=== PATIENT | male | born 1940 | race Caucasian/White ===

== ENCOUNTER 2017-03-02 10:18 | Emergency (ER) | payer OTHER ==
--- NOTE | 2017-03-02 10:29 | EDPHY ---
H & P Time Seen by Provider: 03/02/17 10:28 HPI/ROS: Chief complaint. hip and low back pain HPI. 68-year-old male presents emergency department with left low back and left hip pain for 3 days. He has had a right hip replacement done in 2004. 1 month ago he developed some bursitis in the right hip and after cortisone injection and physical therapy the right hip is better. He last had physical therapy 4 days ago. 3 days ago pain began in his left hip. As he has altered his gait and finding that bending over to walk seems to improve the pain in his left hip he has developed now 2 days of left lower back pain. He has used Tylenol with inadequate relief. He is having a difficult time walking. However there has been no injury or fall. He is comfortable at rest but it hurts to walk. He does have a physical therapy appointment again tomorrow. No knee or ankle discomfort. No bowel or bladder symptoms. No significant history of left hip pain. ROS Constitutional. no fever/chills, no weakness Eyes. no problems with vision ENT. no sore throat, no nasal drainage Cardiovascular. no chest pain Respiratory. no shortness of breath, no cough Abdominal. no abdominal pain, no nausea/vomiting, no diarrhea . no problems urinating MS. low back and left hip pain Skin. no rash Lymph. no swollen glands Neuro. Difficulty walking secondary to left hip pain Past Medical/Surgical History: Past medical history is significant for BPH paroxysmal atrial fibrillation, dyslipidemia. Patient is on Xarelto Social History: , nonsmoker, no alcohol Smoking Status: Never smoked Physical Exam: General Appearance: Alert well-developed male mild distress vital signs stable Eyes: Pupils equal and round no pallor or injection. ENT, Mouth: Mucous membranes are moist. Respiratory: There are no retractions, lungs are clear to auscultation. Cardiovascular: Regular rate and rhythm. Gastrointestinal: Abdomen is soft and nontender, no masses, bowel sounds normal. Neurological: Awake and alert, sensory and motor exams grossly normal. Skin: Warm and dry, no rashes. Musculoskeletal: Neck is supple nontender. Tenderness to the left lumbar area but not over the L-spine. Pain to palpation over the left greater trochanter and posterior buttock. No pain with internal external rotation but pain with flexion extension of the left hip. Knee and ankle exam is normal. No swelling. No surface trauma Extremities symmetrical, full range of motion. Psychiatric: Patient is oriented X 3, there is no agitation. Constitutional: Initial Vital Signs Temperature (C) 36.6 C 03/02/17 10:25 Heart Rate 85 03/02/17 10:25 Respiratory Rate 18 03/02/17 10:25 Blood Pressure 166/85 H 03/02/17 10:25 O2 Sat (%) 97 03/02/17 10:25 O2 Delivery Mode Room Air Allergies/Adverse Reactions: No Known Allergies Allergy (Unverified 01/31/16 13:01) Home Medications: Medication Instructions Recorded Ascorbic Acid [Vitamin C 500 mg 500 mg PO DAILY 01/31/16 (*)] Atorvastatin Calcium [Lipitor 40 40 mg PO HS 01/31/16 mg (*)] Multivitamins [Multivitamin (*)] 1 each PO DAILY 01/31/16 Rivaroxaban [Xarelto 10mg (*)] 20 mg PO DAILY 01/31/16 Tamsulosin HCl [Flomax 0.4 MG (*)] 0.4 mg PO HS 01/31/16 Herbals/Supplements -Info Only 1 ea PO DAILY 02/21/16 Sotalol HCl [Betapace 80 MG (*)] 120 mg PO BID #90 tab 02/23/16 Hydrocodone/APAP 5/325 [[place] 1 each PO Q4-6PRN PRN #10 tab 03/02/17 5/325 (*)] predniSONE 20 mg PO DAILY #3 tablet 03/02/17 Medical Decision Making - Diagnostics Imaging Results: X-ray left hip shows no evidence for fracture dislocation but there is cartilage thinning with bone on bone in the acetabulum. X-ray of the lumbar spine shows no fracture dislocation. There is DJD with spurring. Procedures: Hydrocodone by mouth ED Course/Re-evaluation: Re-evaluation at 11:15 a.m. patient is stable and feels that his discomfort in his back and hip are better after the hydrocodone. The patient, his , and I discussed imaging studies, treatment plan including criteria for return importance of follow-up and further evaluation. They expressed understanding and agreement. He is offered admission because of the concern for decreased mobility and fall risk however both patient and feel comfortable being discharged Differential Diagnosis: I think this sprain strain of the left hip and low back in the setting of degeneration left hip acetabulum area. I considered fracture and dislocation as well as sciatica and cauda equina syndrome as well As the patient is on Eliquis cannot otherwise using anti-inflammatories recently had good success cortisone injection we will use short course of prednisone by mouth to help relieve inflammation - Data Points Medications Given: Discontinued Medications Hydrocodone Bitart/Acetaminophen ([place] 5/325) 1 tab PO EDNOW ONE Stop: 03/02/17 10:40 Last Admin: 03/02/17 10:44 Dose: 1 tab Departure - Departure Disposition: Home, Routine, Self-Care Clinical Impression: Acute lumbar myofascial strain Strain of left hip Qualifiers: Encounter type: initial encounter Qualified Code(s): S76.012A - Strain of muscle, fascia and tendon of left hip, initial encounter Condition: Good Instructions: Hip Pain (ED) Additional Instructions: Ice to sore area of your left hip next 24-48 hours. Tylenol or hydrocodone as needed for pain. Prednisone daily for 3 days. Keep her physical therapy appointment tomorrow. Caution with walking to prevent falls. Return for worsening symptoms. Also make an appointment with her orthopedist for further evaluation your left hip pain Referrals: IFTIKHAR GUZMAN [Primary Care Provider] - As per Instructions Prescriptions: Hydrocodone/APAP 5/325 [[place] 5/325 (*)] 1 each PO Q4-6PRN PRN #10 tab PRN Reason: Pain, Moderate predniSONE 20 mg PO DAILY #3 tablet
[2017-03-02 10:31] VITALS: PULSE 85; RESP 18; TEMP 98; O2SAT 97
[2017-03-02] MEDS ORDERED: HYDROCODONE/APAP 5/325 TAB PO ONE (10:39)
[2017-03-02 11:48] VITALS: BP 147/87
== END 2017-03-02 11:47 | disposition home or self-care (01) ==
LOC: CED 10:18
DX: S39.012A Strain of muscle, fascia and tendon of lower back, initial encounter (principal); S76.012A Strain of muscle, fascia and tendon of left hip, initial encounter; Z79.01 Long term (current) use of anticoagulants; X58.XXXA Exposure to other specified factors, initial encounter
CPT/HCPCS: 72100-PO; 73502-PO

== ENCOUNTER → 2017-03-11 | Outpatient (CLI) | payer OTHER | LOC: BHFA 14:00 | PROVIDERS: ATTEND Internal Medicine Cardiovascular Disease | DX: I48.91 Unspecified atrial fibrillation (principal) ==

== ENCOUNTER 2017-04-24 05:13 | Inpatient (IN) | payer OTHER ==
[2017-04-24] MEDS ORDERED: LR 1,000 ML IV ONE (06:11)
[2017-04-24] MEDS ORDERED: LIDOCAINE 1% 2 ML INJ ID PRN (06:11)
[2017-04-24] MEDS ORDERED: CHLORHEXIDINE GLUC HIBICLENS 118 ML BTL TP ONE (06:30)
[2017-04-24] MEDS ORDERED: THROMBIN (BOVINE) 20,000 UNIT VIAL TP ONE (06:31)
[2017-04-24] MEDS ORDERED: BACITRACIN 50,000 UNITS/10 ML SYR IRR ONE (06:31)
[2017-04-24] MEDS ORDERED: BUPIVACAINE 0.25% 30 ML SDV ONE (06:31)
--- NOTE | 2017-04-24 06:43 | PDANEPAE ---
ANE History of Present Illness 77 year old male for posterior L4/L5 laminectomy w/ decompression. Patient has a history of paroxysmal A. Fib, rate controlled and anti-coagulated. ANE Past Medical History - Cardiovascular History Hx Hypertension: No Hx Arrhythmias: Yes Hx Chest Pain: No Hx Coronary Artery / Peripheral Vascular Disease: No Hx CHF / Valvular Disease: Yes Hx Palpitations: No Cardiovascular History Comment: PAF. asymptomatic sick sinus. moderate aortic insufficiency. see's Dr. Hayden at [facility]. hx of cardioversion - Pulmonary History Hx COPD: No Hx Asthma/Reactive Airway Disease: No Hx Recent Upper Respiratory Infection: No Hx Oxygen in Use at Home: No Hx Sleep Apnea: No Sleep Apnea Screening Result - Last Documented: Negative - Neurologic History Hx Cerebrovascular Accident: No Hx Seizures: No Hx Dementia: No Neurologic History Comment: slight numbness/ ache to right leg - Endocrine History Hx Diabetes: No Hypothyroid: No Hyperthyroid: No Obesity: no - Renal History Hx Renal Disorders: Yes Renal History Comment: bph - Liver History Hx Hepatic Disorders: No - Neurological & Psychiatric Hx Hx Neurological and Psychiatric Disorders: No - Cancer History Hx Cancer: No - Congenital Disorder History Hx Congenital Disorders: No - GI History GERD: no Hx Gastrointestinal Disorders: No - Other Health History Other Health History: wears glasses for driving and distance - Chronic Pain History Chronic Pain: No - Surgical History Prior Surgeries: lasik a few years ago. right mary jane 2006. hernia repair 2010. hx of cardioversion 2016 ANE Review of Systems Review of systems is: negative Review of Systems: - Exercise capacity Exercise capacity: >=4 METS METS (RN): 4 METS ANE Patient History - Allergies Allergies/Adverse Reactions: No Known Allergies Allergy (Verified 04/24/17 06:25) - Home Medications Home medications: home medication list seen and reviewed Home Medications: Ascorbic Acid [Vitamin C 500 mg (*)] 500 mg PO DAILY 01/31/16 [Last Taken ] Atorvastatin Calcium [Lipitor 40 mg (*)] 40 mg PO HS 01/31/16 [Last Taken ] Multivitamins [Multivitamin (*)] 1 each PO DAILY 01/31/16 [Last Taken 04/23/17] Rivaroxaban [Xarelto 10mg (*)] 20 mg PO DAILY 01/31/16 [Last Taken 04/17/17] Tamsulosin HCl [Flomax 0.4 MG (*)] 0.4 mg PO HS 01/31/16 [Last Taken 04/23/17] Herbals/Supplements -Info Only 1 ea PO DAILY 02/21/16 [Last Taken 04/23/17] Acetaminophen [Tylenol 325mg (*)] 325 mg PO DAILY PRN 04/23/17 [Last Taken 04/23] Sotalol HCl [Betapace] 120 mg PO BID 04/23/17 [Last Taken 04/24/17 04:30] - NPO status NPO Status: no food or drink >8 hours NPO Since - Liquids (Date): 04/23/17 NPO Since - Liquids (Time): 19:00 NPO Since - Solids (Date): 04/23/17 NPO Since - Solids (Time): 22:00 - Anes Hx Anes Hx: no prior problems - Smoking Hx Smoking Status: Never smoked Marijuana use: No - Alcohol Use Alcohol Use: Occasionally - Family Anes Hx Family Anes Hx: neg - N/A Family Hx Anesthesia Complications: none ANE Labs/Vital Signs - Vital Signs Vital Signs: reviewed preoperatively; see RN documention for details Blood Pressure: 139/92 Heart Rate: 102 Respiratory Rate: 16 O2 Sat (%): 92 Height: 172.72 cm Weight: 81.647 kg ANE Physical Exam - Airway Neck exam: FROM, short neck Mallampati Score: Class 3 Mouth exam: normal dental/mouth exam, abnormal chin - Pulmonary Pulmonary: no respiratory distress - Cardiovascular Cardiovascular: irregularly irregular - ASA Status ASA Status: III ANE Anesthesia Plan Anesthesia Plan: general endotracheal anesthesia Lines/Monitors: arterial line Total IV Anesthesia: No
[2017-04-24] MEDS ORDERED: REMIFENTANIL HCL 1 MG VIAL ONE (06:47)
[2017-04-24] MEDS ORDERED: fentaNYL 100 MCG/2 ML INJ ONE (06:47)
[2017-04-24] MEDS ORDERED: PROPOFOL 200 MG/20 ML VIAL ONE (06:47)
[2017-04-24] MEDS ORDERED: PHENYLEPHRINE 10 MG/ML SDV ONE (06:48)
[2017-04-24] MEDS ORDERED: PROPOFOL/EMULSION 500 MG/50 ML BOTTLE IV ONE (06:48)
[2017-04-24] MEDS ORDERED: ACETAMINOPHEN 500 MG TAB PO ONE (06:53)
[2017-04-24] MEDS ORDERED: GABAPENTIN 300 MG CAP PO ONE (06:53)
[2017-04-24] MEDS ORDERED: ceFAZolin 2 GM/SWFI 2 GM/20 ML SYR IVP ONE (06:53)
[2017-04-24] MEDS ORDERED: MIDAZOLAM 2 MG/2 ML VIAL ONE (07:01)
--- NOTE | 2017-04-24 07:01 | CPEKG ---
Heart Rate: 97 RR Interval: 619 QRSD Interval: 92 QT Interval: 388 QTC Interval: 493 QRS [place]: 5 T Wave [place]: 9 EKG Severity - ABNORMAL ECG - EKG Impression: ATRIAL FIBRILLATION EKG Impression: BORDERLINE T ABNORMALITIES, ANT-LAT LEADS EKG Impression: BORDERLINE PROLONGED QT INTERVAL Electronically Signed By: Papa Becker 24-Apr-2017 12:42:42
--- NOTE | 2017-04-24 07:08 | PDHPUP ---
History & Physical Update H&P update statement: This history and physical update is based on an assessment of the patient which was completed after admission or registration (within 24 hours), but prior to the surgery/procedure. H&P update: H&P reviewed & patient examined, no change in patient's condition since H&P completed (Consents have been signed and site marked. All questions answered.)
[2017-04-24] MEDS ORDERED: PHENYLEPHRINE HCL 100 MCG/ML SYR ONE (07:17)
[2017-04-24] MEDS ORDERED: NALOXONE HCL 0.4 MG/ML INJ IVP PRN (08:07)
[2017-04-24] MEDS ORDERED: OXYCODONE/APAP 5/325 TAB PO PRN (08:07)
[2017-04-24] MEDS ORDERED: fentaNYL 100 MCG/2 ML INJ IVP PRN (08:07)
[2017-04-24] MEDS ORDERED: HYDROmorphONE/DILAUDID 1 MG/ML INJ IVP PRN ×2 (08:07→08:55)
[2017-04-24] MEDS ORDERED: LR 500 ML IV PRN (08:07)
[2017-04-24] MEDS ORDERED: PHENYLEPHRINE HCL 100 MCG/ML SYR IVP PRN (08:07)
[2017-04-24] MEDS ORDERED: ONDANSETRON 4 MG/2 ML VIAL IVP PRN ×2 (08:07→08:55)
[2017-04-24] MEDS ORDERED: SUGAMMADEX SODIUM 200 MG/2 ML VIAL IVP ONE (08:41)
[2017-04-24] MEDS ORDERED: ONDANSETRON 4 MG/2 ML VIAL ONE (08:47)
[2017-04-24] MEDS ORDERED: ACETAMINOPHEN 325 MG TAB PO PRN (08:53)
[2017-04-24] MEDS ORDERED: diphenhydrAMINE 25 MG CAP PO PRN (08:55)
[2017-04-24] MEDS ORDERED: POLYETHYLENE GLYCOL 3350 17 GM PKT PO PRN (08:55)
[2017-04-24] MEDS ORDERED: LACTULOSE 20 GM/30 ML UDCUP PO PRN (08:55)
[2017-04-24] MEDS ORDERED: BISACODYL 10 MG SUPP PR PRN (08:55)
[2017-04-24] MEDS ORDERED: METHOCARBAMOL 750 MG TAB PO PRN (08:55)
[2017-04-24] MEDS ORDERED: ONDANSETRON DISINTEGRATING 4 MG TAB PO PRN (08:55)
[2017-04-24] MEDS ORDERED: MAGNESIUM HYDROXIDE 30 ML UDCUP PO PRN (08:55)
[2017-04-24] MEDS ORDERED: RIVAROXABAN 10 MG TAB PO SCH (09:00)
[2017-04-24] MEDS ORDERED: NS W/ 20 KCl/L 1,000 ML IV SCH (09:00)
[2017-04-24] MEDS ORDERED: SOTALOL HCL 120 MG PO SCH (09:00)
--- NOTE | 2017-04-24 09:04 | POSTOPPROG ---
Post Op Note Date of Operation: 04/24/17 Surgeon: Radha Del Rosario Telephoto Engineer: Elizabeth Del Rosario PA-C Anesthesiologist: Santos Anesthesia: GET(General Endotracheal) Pre-op Diagnosis: lumbar stenosis Post-op Diagnosis: same Indication: nerve compression Procedure: L4-5 laminectomy and decompression Findings: Please see dictation Inf/Abcess present in the surg proc area at time of surgery?: No Depth: Organ Space EBL: Minimal Complications: none Specimen(s): none PA Addendum - Addendum .: S: Pt in PACU, denies pain O: AAOx3 NAD VSS MAEx4 Motor 5/5 BUE/BLE +LT Incision cdi, dressed A: 77 yo M s/p L4-5 laminectomy and decompression P: Pain management PT/OT TEDs, SCDs, lovenox POD#1. Resume xarelto POD#7 Admit to obs overnight Call NS with any issues D/w Dr James
--- NOTE | 2017-04-24 10:07 | GOP ---
[f rep st] OPERATIVE REPORT DATE OF OPERATION: 04/24/2017 SURGEON: Shlomo James MD FORECLOSURE SPECIALIST: CHRIS Neri ANESTHESIA: General. PREOPERATIVE DIAGNOSIS: 1. L4-L5 severe spinal stenosis. 2. Lower extremity claudication and weakness. 3. Treatment refractory to nonoperative management. POSTOPERATIVE DIAGNOSIS: 1. L4-L5 severe spinal stenosis. 2. Lower extremity claudication and weakness. 3. Treatment refractory to nonoperative management. PROCEDURE PERFORMED: 1. L4-L5 decompressive laminectomy with bilateral medial facetectomies and spinal cord decompression. 2. Use of intraoperative fluoroscopy, less than 1 hour physician time. 3. Use of neuromonitoring. 4. Use of operative microscope. FINDINGS: per imaging SPECIMENS: None. ESTIMATED BLOOD LOSS: 100 mL. INDICATIONS: The patient is a 77-year-old gentleman who presented with lower extremity weakness and claudication. He had evidence of severe spinal stenosis L4-L5. After discussion of the risks, benefits, and treatment alternatives and after failing nonoperative intervention, we decided to proceed forth with surgery as described above. DESCRIPTION OF PROCEDURE: Patient was brought to operative theater and underwent general endotracheal anesthesia without complications. He had Venodynes, WON hose and the appropriate lines placed by Anesthesia. He was flipped prone onto the Lawrence frame and all bony processes inspected and padded. The lower lumbar region was prepped and draped in the usual sterile surgical fashion. A time-out was completed per protocol. The patient received antibiotics within 1 hour of incision. Using lateral fluoroscopy and spinal needle, we picked our entry point to the L4 -L5 level. This was marked in the midline and the incision infiltrated with Marcaine with epinephrine. The incision was taken down with the scalpel blade and then using monopolar, taken down the midline through the lumbodorsal fascia and a subperiosteal dissection carried out to the medial facet joints of L4-L5. Deep retractors were placed to maintain our exposure. We confirmed our level using lateral fluoroscopy. The microscope was brought into field to assist with microscopic dissection and to maintain illumination and magnification. Using a combination of bur tip on the drill bit Kerrison punches and Leksell rongeur, we completed a decompressive laminectomy at L4-L5 with bilateral medial facetectomies. Once we felt that everything was well decompressed on manual palpation, we obtained hemostasis with the bipolar. The wound was irrigated copiously with bacitracin irrigation and closed in multiple layers using Vicryl sutures deep layers and Dermabond for the skin. The patient's wounds were dressed sterilely. He was flipped supine onto the transfer cart, where he was awakened, extubated, taken to the recovery room in stable condition. There were no complications and no noted changes on neuromonitoring throughout the procedure. COMPLICATIONS: None. /[id number]/MODL MTDD
[2017-04-24] MEDS: FAMOTIDINE 20 MG TAB PO SCH ×2 (12:08→20:17)
[2017-04-24] MEDS: ASCORBIC ACID 500 MG TAB PO SCH (12:08)
[2017-04-24] MEDS: MULTIVITAMINS 1 EACH TAB PO SCH (12:08)
[2017-04-24] MEDS: SENNOSIDES/DOCUSATE SODIUM TAB PO SCH ×2 (12:08→20:17)
[2017-04-24] MEDS: ceFAZolin 2 GM/DEXTROSE 100 ML IV SCH ×2 (13:45→20:16)
[2017-04-24] MEDS: ACETAMINOPHEN 500 MG TAB PO SCH ×2 (14:23→20:17)
[2017-04-24] MEDS: oxyCODONE IR 5 MG TAB PO PRN ×2 (16:42→20:18)
--- NOTE | 2017-04-24 17:24 | POSTANESTH ---
Post Anesthetic Evaluation Cardiovascular Status: Normal, Stable, Similar to Pre-Op Cond Respiratory Status: Normal, Stable, Similar to Pre-op Cond. Level of Consciousness/Mental Status: Can Participate in Eval, Alert and Oriented Pain Control: Adequate, Prn Tx Ordered Nausea/Vomiting Control: Adequate, Prn Tx Ordered Complications Possibly Related to Anesthesia: None Noted
[2017-04-24] MEDS: TAMSULOSIN HCL 0.4 MG CAP PO SCH (20:17)
[2017-04-24] MEDS: ATORVASTATIN CALCIUM 40 MG TAB PO SCH (20:17)
[2017-04-24] MEDS: SOTALOL HCL 80 MG TAB PO SCH (20:19)
[2017-04-25] MEDS: ACETAMINOPHEN 500 MG TAB PO SCH ×3 (05:07→22:05)
[2017-04-25] MEDS: oxyCODONE IR 5 MG TAB PO PRN ×4 (05:08→15:58)
--- NOTE | 2017-04-25 07:44 | NEUSURGPN ---
Assessment/Plan: A: 77 yo M s/p L4-5 laminectomy and decompression POD#1 P: Pain management Pt with LLE edema - stat LLE ultrasound ordered to r/o DVT PT/OT TEDs, SCDs, lovenox POD#1. Resume xarelto POD#7 Plan for DC later today pending clinical course Call NS with any issues D/w Dr James Subjective: Pt resting in bed, states pain is well managed. Hasn't gotten out of bed much yet. Objective: AAOx3 NAD VSS MAEx4 Motor 5/5 BLE left lower leg edema +LT Urinary Catheter in Place: No - Physician Discussed Patient with : Erika Patient Seen by : Erika Neurosurgery Physical Exam - Vitals, I&O, Labs I and O 04/24/17 04/25/17 04/26/17 05:59 05:59 05:59 Intake Total 2135 Output Total 2095 Balance 40 Weight 81.647 kg 81.647 kg Intake: Oral (ml) 1435 IV Intake (ml) 700 Output: Urine (ml) 2075 Urinal 2075 Estimated Blood Loss (ml) 20 Other: Number of Voids Urinal 1 Vital Signs Temp Pulse Resp BP Pulse Ox 36.5 C 91 16 136/92 H 95 04/25/17 04:00 04/25/17 07:22 04/25/17 07:22 04/25/17 07:22 04/25/17 07:22 ICD10 Worksheet Patient Problems: Problems Problem Status Onset PAF (paroxysmal atrial fibrillation) Acute
[2017-04-25] MEDS ORDERED: ENOXAPARIN 40 MG/0.4 ML SYR SC SCH (09:00)
[2017-04-25] MEDS: ASCORBIC ACID 500 MG TAB PO SCH (09:50)
[2017-04-25] MEDS: MULTIVITAMINS 1 EACH TAB PO SCH (09:51)
[2017-04-25] MEDS: SOTALOL HCL 80 MG TAB PO SCH ×2 (09:51→22:05)
[2017-04-25] MEDS: SENNOSIDES/DOCUSATE SODIUM TAB PO SCH (09:53)
[2017-04-25] MEDS: FAMOTIDINE 20 MG TAB PO SCH ×2 (09:53→22:05)
--- NOTE | 2017-04-25 15:13 | PDHOSCONS ---
Hospitalist Consult Hospitalist Consult: Referring physician: Dr. James Reason for consultation: acute LLE DVT, Afib, Chronic AC HPI: this is a 77 yo male who had elective L4-5 Laminectomy and Decompression on POD #1. He jerry a long hx of AFib and is chronically in afib on Sotalol. He takes Xarelto and this was stopped several days earlier. He c/o of left leg swelling and an ultrasound revealed an acute left sided popliteal and calf vein dvts. He has not had any resp symptoms and denies chest pain. Lovenox was increased to 40 mg BID. Not on telemetry. He denies any previous hx of clots, no fever, no SOB. HR is well controlled on Sotalol. He does not have right sided leg swelling. He is not hypotensive ROS: 10 point review of system performed and positive per above otherwise negative. PMHx: -chronic afib -chronic AC on Xarelto -Low back pain with radiculopathy -HLD -BPH PSHx: Hernia repair, Right hip replacement, back surgery Soc Hx: no tobacco, social ETOH, , lives with FmHx: hx of cancer Med: see med rec All: nkda O: VSS, on 1 L o2 HEENT: NC, AT, PEERLA, EOMI, OROPHARYNX CLEAR, MMM NECK: NO JVD CV: IRR/IRR, NO LE EDEMA EXT: minimal swelling of LLE, no pain behind calf or knee RESP: CTA B ABD: S/NT/ND SKIN: WARM PSYCH: MOOD APPROPRIATE NEURO: AAOX3 Labs: labs prior to admission reviewed. Past medical records reviewed I/P #Acute Left sided DVT #Chronic Afib, rate controlled with Sotalol #chronic AC, off Xarelto, now on Lovenox 40mg BID. #s/p Lumbar surgery Plan: I d/w Dr. James. Due to his recent surgery he is a risk for bleeding event. However, given that he has chronic Afib and now an acute LLE DVT, he would benefit from increase AC. After discussion, we will continue with Lovenox 40mg BID today (his second dose is tonight). Tomorrow, he will transition to 60mg BID. If he tolerates this, he can transition to 80mg BID on the next day which essentially will be at the therapeutic range. His left leg does not appear very swollen, although he has been elevating it, he also does not have much pain. For now I would hold off on getting an IVC filter unless there is clinical deterioration cont Sotalol and transfer to PCU for closer monitoring Ok to ambulate from a clot perspective. Compression stockings ok too. Avoid SCD' s. Labs in a.m. D/w nurse in detail Thank you for this consult, we will follow along with you.
--- NOTE | 2017-04-25 18:50 | PDPROPOC ---
Sedation Plan of Care Sedation Plan of Care: vital signs stable, mental status noted, patient educated of risks, benefits, alternatives, patient can tolerate sedation ASA Classification: ASA 3 Planned drugs: fentanyl Mallampati Score: Class 1 Mallampati Reference Image: Patient passed 3-3-2 rule?: Yes
[2017-04-25] MEDS ORDERED: fentaNYL 100 MCG/2 ML INJ ONE (19:19)
--- NOTE | 2017-04-25 20:15 | PDRADPN ---
Radiology Procedure Note Date of Procedure: 04/25/17 Radiologist: Jorge Blue Anesthesia: Local (Specify) (plus Fentanyl 100 mcg IV) Pre-op Diagnosis: DVT left leg Post-op Diagnosis: Same Indication: Anticoagulation contraindicated Procedure: IVC filter Finding(s): Retrievable IVC filter deployed without incident. Normal IVC. Inf/Abcess present in the surg proc area at time of surgery?: No EBL: Minimal Complications: none
[2017-04-25] MEDS: ENOXAPARIN 40 MG/0.4 ML SYR SC SCH (22:04)
[2017-04-25] MEDS: ATORVASTATIN CALCIUM 40 MG TAB PO SCH (22:05)
[2017-04-25] MEDS: TAMSULOSIN HCL 0.4 MG CAP PO SCH (22:05)
[2017-04-26] MEDS: SENNOSIDES/DOCUSATE SODIUM TAB PO SCH ×3 (02:13→21:32)
[2017-04-26] MEDS: ACETAMINOPHEN 500 MG TAB PO SCH ×3 (05:43→21:08)
[2017-04-26 08:24] LABS: PLATELET COUNT 162 10^3/uL (150-400)
[2017-04-26] MEDS: MULTIVITAMINS 1 EACH TAB PO SCH (08:53)
[2017-04-26] MEDS: SOTALOL HCL 80 MG TAB PO SCH ×2 (08:54→21:09)
[2017-04-26] MEDS: ENOXAPARIN 40 MG/0.4 ML SYR SC SCH ×2 (08:54→21:08)
[2017-04-26] MEDS: FAMOTIDINE 20 MG TAB PO SCH ×2 (08:55→21:08)
[2017-04-26] MEDS: ASCORBIC ACID 500 MG TAB PO SCH (08:55)
[2017-04-26] MEDS ORDERED: ENOXAPARIN 60 MG/0.6 ML SYR SC SCH (09:00)
--- NOTE | 2017-04-26 11:39 | SOAPPROG ---
SOAP Progress Note Assessment/Plan: S: Standing at bedside, doing well and pleased that he can walk without pain today. He feels his LLE swelling has improved A: 77 yo M s/p L4-5 laminectomy and decompression POD#2. Newly diagnosed LLE DVT, on Lovenox 60mg BID. Was on Xarelto preop for Afib. Doing well with improvement of ambulatory status. P: IVC filter placed yesterday Will get cardiology consult to discuss how best to anticoagulate patient since he's at risk of post op hematoma if fully anticoagulated PT/OT TEDs, SCDs Resume xarelto POD#7 Call NS with any issues Objective: Vital Signs Temp Pulse Resp BP Pulse Ox 36.3 C 91 18 124/81 H 95 04/26/17 07:40 04/26/17 07:40 04/26/17 07:40 04/26/17 07:40 04/26/17 07:40 Laboratory Results 04/26/17 08:10 04/26/17 08:10 04/25/17 04/26/17 04/27/17 05:59 05:59 05:59 Intake Total 2135 948 Output Total 6592 1400 Balance 40 -550 Neuro: able to toe stand and ambulates without difficulty sens +LT LLE swelling, but non tender to palpation Incision: dressing dry ICD10 Worksheet Patient Problems: Problems Problem Status Onset PAF (paroxysmal atrial fibrillation) Acute
--- NOTE | 2017-04-26 13:08 | HOSPPROG ---
Hospitalist Progress Note Assessment/Plan: 77 y/o male new to my care 04/25 pod #2 s/p L4-5 laminectomy and decompression with #Acute Left sided DVT (occurred while off Xarelto preop) s/p ivc filter placement 04/25 #Chronic Afib, rate controlled with Sotalol #chronic AC, off Xarelto, now on Lovenox 40mg BID. #s/p Lumbar surgery Plan: -cont 1/2 dose lovenox as ordered and resume full anticoagulation when deemed safe from a surgical perspective. Note from today indicates to start DOAC treatment POD #7 -cont sotalol for rate control -will order daily cbc to eval for bleeding Hospital medicine will continue to follow Subjective: reports some left calf pain. no chest pain or sob Objective: Vital Signs Temp Pulse Resp BP Pulse Ox 36.6 C 83 21 H 111/78 98 04/26/17 11:55 04/26/17 11:55 04/26/17 11:55 04/26/17 11:55 04/26/17 11:55 Laboratory Results 04/26/17 08:10 04/26/17 08:10 04/25/17 04/26/17 04/27/17 05:59 05:59 05:59 Intake Total 2135 850 Output Total 2095 1400 Balance 40 -550 - Physical Exam Constitutional: no apparent distress, appears nourished, not in pain Cardiovascular: regular rate and rhythym, no murmur, rub, or gallop, irregularly irregular, edema (left leg swelling) Respiratory: no respiratory distress, no rales or rhonchi, clear to auscultation Gastrointestinal: normoactive bowel sounds, soft, non-tender abdomen, no palpable masses ICD10 Worksheet Patient Problems: Problems Problem Status Onset PAF (paroxysmal atrial fibrillation) Acute
--- NOTE | 2017-04-26 14:22 | ASMTCMCOM ---
CM Note CM Note Notes: 04/26/2017 Case Management Note Reviewed chart, spoke w/RN. PT is recommending outpatient rehab with no need for home services. There are no other case management d/c needs identified. Case Management d/c poc: Home with family support with follow up as directed. Case Management available if needs change. Date Signed: 04/26/2017 02:22 PM Electronically Signed By:Divine Barker RN
[2017-04-26] MEDS ORDERED: HYDROmorphone HCL/NS/PF 0.4 MG/2 ML SYR IVP PRN (16:00)
[2017-04-26] MEDS: oxyCODONE IR 5 MG TAB PO PRN (21:08)
[2017-04-26] MEDS: TAMSULOSIN HCL 0.4 MG CAP PO SCH (21:08)
[2017-04-26] MEDS: ATORVASTATIN CALCIUM 40 MG TAB PO SCH (21:08)
[2017-04-27] MEDS: ACETAMINOPHEN 500 MG TAB PO SCH (05:33)
[2017-04-27 05:38] VITALS: RESP 19
[2017-04-27 07:56] VITALS: BP 111/89; PULSE 98; TEMP 98
[2017-04-27] MEDS: ASCORBIC ACID 500 MG TAB PO SCH (08:04)
[2017-04-27] MEDS: MULTIVITAMINS 1 EACH TAB PO SCH (08:05)
[2017-04-27] MEDS: SOTALOL HCL 80 MG TAB PO SCH (08:05)
[2017-04-27] MEDS: FAMOTIDINE 20 MG TAB PO SCH (08:05)
[2017-04-27] MEDS: ENOXAPARIN 40 MG/0.4 ML SYR SC SCH (08:25)
[2017-04-27 08:37] LABS: PLATELET COUNT 182 10^3/uL (150-400)
[2017-04-27 08:56] VITALS: O2SAT 95
[2017-04-27] MEDS: SENNOSIDES/DOCUSATE SODIUM TAB PO SCH (08:56)
--- NOTE | 2017-04-27 10:28 | SOAPPROG ---
GERTRUDE Progress Note Assessment/Plan: Assessment: POD#3 s/p L4-5 Laminectomy, developed DVT while off his xeralto, IVC filter placed 04/25, on lovenox Plan: - continue lovenox 40mg BID until when he can resume xeralto - doing well from lumbar surgical standpoint, legs much better, walking well - will check with IM but if they agree will d/c home today - updated patient and - f/u with Erika in 2 weeks 04/27/17 10:24 Subjective: no new events, doing well Objective: Vital Signs Temp Pulse Resp BP Pulse Ox 36.7 C 98 19 111/89 H 95 04/27/17 07:56 04/27/17 07:56 04/27/17 07:56 04/27/17 07:56 04/27/17 08:55 Laboratory Results 04/27/17 07:50 04/27/17 07:50 04/26/17 04/27/17 04/28/17 05:59 05:59 05:59 Intake Total 850 100 Output Total 1400 Balance -550 100 AAOx3, full strength/sensation, no drift, dressing c/d/i - Pending Discharge Pending Discharge Within 24 Hours: Yes Pending Discharge Date: 04/28/17 Pending Discharge Time: 11:00 ICD10 Worksheet Patient Problems: Problems Problem Status Onset PAF (paroxysmal atrial fibrillation) Acute
--- NOTE | 2017-04-27 16:22 | ASDISCHSUM ---
Discharge Information Plan Status:Home with No Needs Medically Cleared to Leave:04/26/2017 Discharge Date:04/27/2017 11:36 AM CM D/C Disposition:Home, Routine, Self-Care ADT D/C Disposition:Home, Routine, Self-Care Projected Discharge Date:04/27/2017 11:36 AM Transportation at D/C:Family Discharge Delay Reason: Follow-Up Date:04/27/2017 11:36 AM Discharge Slot: Final Diagnosis: Placement Information Patient Contact Information Contact Name:BROOKE Relationship: Address:[address] [facility] City:[place] Alternate Phone: [facility]/Zip Code:[place] [address] Email: Financial Information Financial Class: Primary Plan Desc:MEDICARE INPATIENT Primary Plan Number:[id number] Secondary Plan Desc:[facility] Secondary Plan Number:[id number] Assessment Information BC CM Progress Note CM Note CM Note Notes: 04/26/2017 Case Management Note Reviewed chart, spoke w/RN. PT is recommending outpatient rehab with no need for home services. There are no other case management d/c needs identified. Case Management d/c poc: Home with family support with follow up as directed. Case Management available if needs change. Date Signed: 04/26/2017 02:22 PM Electronically Signed By:Divine Barker RN Case Management Discharge Plan Note Case Management Discharge Discharge Order Complete? Answers: Yes Patient to Obtain Answers: Independently Medications Transportation Arranged Answers: Family/Friends Family Notified Answers: Yes Notes: in room Discharge Comments Notes: 04/27/2017 Case Management Note Met w/pt and . Confirmed there are no case management d/c needs. to transport pt home. IM signed. Pt to d/c independent with follow up as directed. Date Signed: 04/27/2017 11:05 AM Electronically Signed By:Divine Barker RN LACE LACE Length of stay for Answers: 1 day current admission Acuity / Level of Care Answers: No. Emergency dept visits in Answers: 1 last 6 months Score: 2 Date Signed: 04/27/2017 11:07 AM Electronically Signed By:Divine Barker RN Intervention Information Intervention Type:*IM-Signed Date of Service:04/27/2017 11:03 AM Patient Type:Inpatient Staff Member:MICHELL Barker Hillary Hours: Discipline: Severity: Comment:
--- NOTE | 2017-04-27 16:24 | HOSPPROG ---
Hospitalist Progress Note Assessment/Plan: * Acute left DVT due to holding Xarelto for surgery -s/p IVC filter -per neurosurgery - okay for Lovenox 40mg SUB Q bid while off Xarelto -resume Xarelto 05/01 -remove IVC filter as OP 1-2 months * s/p spine surgery -case d/w Dr. Farmer * Chronic afib -continue sotalol * Macrocytosis -outpatient follow-up ok for discharge home today per hospitalist medicine Subjective: No complaints. Objective: Vital Signs Temp Pulse Resp BP Pulse Ox 36.7 C 98 19 111/89 H 95 04/27/17 07:56 04/27/17 07:56 04/27/17 07:56 04/27/17 07:56 04/27/17 08:55 Laboratory Results 04/27/17 07:50 04/27/17 07:50 04/26/17 04/27/17 04/28/17 05:59 05:59 05:59 Intake Total 850 100 Output Total 1400 Balance -550 100 US left leg - DVT popliteal and distal - Physical Exam Constitutional: no apparent distress, appears nourished, not in pain Cardiovascular: regular rate and rhythym, no murmur, rub, or gallop Respiratory: no respiratory distress, no rales or rhonchi, clear to auscultation Gastrointestinal: normoactive bowel sounds, soft, non-tender abdomen, no palpable masses Skin: no rashes or abrasions, no fluctuance, no induration Neurologic: AAOx3, sensation intact bilaterally Psychiatric: interacting appropriately, not anxious, not encephalopathic, thought process linear ICD10 Worksheet Patient Problems: Problems Problem Status Onset DVT (deep venous thrombosis) Acute Lumbar stenosis with neurogenic claudication Acute PAF (paroxysmal atrial fibrillation) Acute
[2017-05-01] MEDS ORDERED: RIVAROXABAN 10 MG TAB PO SCH (09:00)
== END 2017-04-27 11:36 | disposition home or self-care (01) | DRG 254 ==
LOC: F3N 05:13 → OBSVTOIN 04-25 15:40 → F2W 04-25 16:57
PROVIDERS: ADMIT Neurological Surgery; ATTEND Neurological Surgery
DX: I82.432 Acute embolism and thrombosis of left popliteal vein (principal); M48.062 Spinal stenosis, lumbar region with neurogenic claudication; M54.16 Radiculopathy, lumbar region; I48.2 Chronic atrial fibrillation; N40.0 Benign prostatic hyperplasia without lower urinary tract symptoms; Z79.01 Long term (current) use of anticoagulants
CPT/HCPCS: 97161-GP; 97165-GO; C1769; G8978-GP-CI; G8979-GP-CI; G8980-GP-CI; G8987-GO-CI; G8988-GO-CI; G8989-GO-CI; J0171; J0690; J1644; J1650; J2250; J2370; J2405; J2704; J3010

== ENCOUNTER → 2017-04-29 | Outpatient (CLI) | payer OTHER | LOC: FIMAGING 15:03 | PROVIDERS: ATTEND Internal Medicine | DX: I82.402 Acute embolism and thrombosis of unspecified deep veins of left lower extremity (principal) ==

== ENCOUNTER 2017-07-11 07:29 | Day surgery (SDC) | payer OTHER ==
[2017-07-11] MEDS ORDERED: fentaNYL 100 MCG/2 ML INJ IVP PRN (08:20)
[2017-07-11] MEDS ORDERED: MIDAZOLAM 2 MG/2 ML VIAL IVP PRN (08:20)
[2017-07-11] MEDS ORDERED: FLUMAZENIL 0.5 MG/5 ML MDV IVP PRN (08:20)
[2017-07-11] MEDS ORDERED: NALOXONE HCL 0.4 MG/ML INJ IVP PRN (08:20)
[2017-07-11] MEDS ORDERED: MEPERIDINE 25 MG/ML SYR IVP PRN (08:20)
[2017-07-11] MEDS ORDERED: NS 1,000 ML IV SCH (08:30)
[2017-07-11 08:37] VITALS: PULSE 72; TEMP 98.8
--- NOTE | 2017-07-11 09:01 | PDGENHP ---
History & Physical Chief Complaint: prior DVT History of Present Illness: prior DVT with improvement on daily Xarelto. Recent IVC filter no longer indicated. Relevant Physical Exam: 89% on RA, chronic Afib. nl wob. Cardiorespiratory Assessment: baseline rhythm, normal rate
--- NOTE | 2017-07-11 09:05 | PDPROPOC ---
Sedation Plan of Care Sedation Plan of Care: vital signs stable ASA Classification: ASA 2 Planned drugs: fentanyl, midazolam Mallampati Score: Class 3 Mallampati Reference Image: Patient passed 3-3-2 rule?: Yes
[2017-07-11] MEDS ORDERED: ONDANSETRON 4 MG/2 ML VIAL IVP PRN (09:40)
[2017-07-11] MEDS ORDERED: ACETAMINOPHEN 325 MG TAB PO PRN (09:40)
--- NOTE | 2017-07-11 09:40 | PDRADPN ---
Radiology Procedure Note Date of Procedure: 07/11/17 Radiologist: Gabe Escobar Anesthesia: IV Sedation Pre-op Diagnosis: IVC filter no longer indicated Post-op Diagnosis: same Indication: prior DVT, now on OAC Procedure: IVC filter removal Finding(s): no clot in cone. filter removed intact. Inf/Abcess present in the surg proc area at time of surgery?: No EBL: Minimal Complications: none Specimen(s): none
[2017-07-11 09:46] VITALS: BP 137/82
[2017-07-11] MEDS ORDERED: IOPAMIDOL (ISOVUE-300) 100 ML BTL ONE (09:53)
[2017-07-11 10:32] VITALS: RESP 11; O2SAT 97
== END 2017-07-11 10:55 | disposition home or self-care (01) ==
LOC: FIMAGING 07:29
PROVIDERS: ATTEND Internal Medicine
DX: Z45.2 Encounter for adjustment and management of vascular access device (principal); I48.2 Chronic atrial fibrillation; Z79.01 Long term (current) use of anticoagulants; Z86.718 Personal history of other venous thrombosis and embolism
CPT/HCPCS: 37193; 75825; 99152; C1769; C1773; C1892; J1644; J2250; J2310; J3010; Q9967

== ENCOUNTER → 2017-08-11 | Outpatient (CLI) | payer OTHER | LOC: BRMIMAGING 09:11 | PROVIDERS: ATTEND Internal Medicine | DX: M50.322 Other cervical disc degeneration at C5-C6 level (principal); J98.8 Other specified respiratory disorders; I51.7 Cardiomegaly; I70.0 Atherosclerosis of aorta | CPT/HCPCS: 71046-PO; 72040-PO ==

== ENCOUNTER → 2017-08-13 | Outpatient (CLI) | payer OTHER | LOC: BHLMT 11:30 | PROVIDERS: ATTEND Internal Medicine Interventional Cardiology | DX: I48.91 Unspecified atrial fibrillation (principal) | CPT/HCPCS: 93306-PO ==

== ENCOUNTER 2017-09-17 11:56 | Day surgery (SDC) | payer OTHER ==
[2017-09-17] MEDS ORDERED: fentaNYL 100 MCG/2 ML INJ IVP ONE (11:58)
[2017-09-17] MEDS ORDERED: NS 500 ML IV ONE (11:58)
[2017-09-17] MEDS ORDERED: ATROPINE SULFATE 1 MG/10 ML SYR IVP ONE (11:58)
[2017-09-17] MEDS ORDERED: MIDAZOLAM 2 MG/2 ML VIAL IVP ONE (11:58)
--- NOTE | 2017-09-17 12:19 | CPEKG ---
Heart Rate: 75 RR Interval: 800 QRSD Interval: 96 QT Interval: 436 QTC Interval: 487 QRS Partridge: -9 T Wave Partridge: 14 EKG Severity - ABNORMAL ECG - EKG Impression: ATRIAL FIBRILLATION EKG Impression: BORDERLINE PROLONGED QT INTERVAL Electronically Signed By: Sanchez Junior 18-Sep-2017 10:46:38
[2017-09-17 12:43] LABS: INR 2.36 (0.83-1.16); PROTIME(PATIENT) 25.8 SEC (12.0-15.0)
--- NOTE | 2017-09-17 13:16 | PDANEPAE ---
ANE History of Present Illness Cardioversion ANE Past Medical History - Cardiovascular History Hx Hypertension: No Hx Arrhythmias: Yes Hx Chest Pain: No Hx Coronary Artery / Peripheral Vascular Disease: No Hx CHF / Valvular Disease: Yes Hx Palpitations: Yes Cardiovascular History Comment: Atrial fibrillation. asymptomatic sick sinus. moderate aortic insufficiency. hx of cardioversion - Pulmonary History Hx COPD: No Hx Asthma/Reactive Airway Disease: No Hx Recent Upper Respiratory Infection: No Hx Oxygen in Use at Home: No Hx Sleep Apnea: No - Neurologic History Hx Cerebrovascular Accident: No Hx Seizures: No Hx Dementia: No Neurologic History Comment: slight numbness/ ache to right leg - Endocrine History Hx Diabetes: No - Renal History Hx Renal Disorders: Yes Renal History Comment: bph - Liver History Hx Hepatic Disorders: No - Neurological & Psychiatric Hx Hx Neurological and Psychiatric Disorders: No - Cancer History Hx Cancer: No - Congenital Disorder History Hx Congenital Disorders: No - GI History Hx Gastrointestinal Disorders: No - Other Health History Other Health History: wears glasses for driving and distance - Chronic Pain History Chronic Pain: No - Surgical History Prior Surgeries: lasik a few years ago. right hip replacement 2005. hernia repair 2009. hx of cardioversion 2015. spinal stenosis surgery 03/2017 ANE Review of Systems Review of systems is: negative Review of Systems: - Exercise capacity METS (RN): 4 METS ANE Patient History - Allergies Allergies/Adverse Reactions: No Known Allergies Allergy (Verified 07/09/17 16:42) - Home Medications Home medications: home medication list seen and reviewed Home Medications: Ascorbic Acid [Vitamin C 500 mg (*)] 500 mg PO DAILY 01/31/16 [Last Taken ] Atorvastatin Calcium [Lipitor 40 mg (*)] 40 mg PO HS 01/31/16 [Last Taken ] Multivitamins [Multivitamin (*)] 1 each PO DAILY 01/31/16 [Last Taken 04/23/17] Tamsulosin HCl [Flomax 0.4 MG (*)] 0.4 mg PO HS 01/31/16 [Last Taken 04/23/17] Herbals/Supplements -Info Only 1 ea PO DAILY 02/21/16 [Last Taken 04/23/17] Lasix mg PO DAILY 07/09/17 [Last Taken Unknown] Toprol Xl 120 mg PO BID 07/09/17 [Last Taken Unknown] - NPO status NPO Status: no food or drink >8 hours - Anes Hx Anes Hx: no prior problems - Smoking Hx Smoking Status: Never smoked - Family Anes Hx Family Anes Hx: none Family Hx Anesthesia Complications: none ANE Labs/Vital Signs - Labs Result Diagrams: 09/17/17 12:30 - Vital Signs Height: 172.72 cm Weight: 81.647 kg ANE Physical Exam - Airway Neck exam: FROM Mallampati Score: Class 2 Mouth exam: normal dental/mouth exam - Pulmonary Pulmonary: no respiratory distress - Cardiovascular Cardiovascular: regular rate and rhythym - ASA Status ASA Status: III ANE Anesthesia Plan Total IV Anesthesia: Yes
--- NOTE | 2017-09-17 13:16 | POSTANESTH ---
Post Anesthetic Evaluation Cardiovascular Status: Similar to Pre-Op Cond Respiratory Status: Normal, Stable, Similar to Pre-op Cond. Level of Consciousness/Mental Status: Can Participate in Eval, Mildly Sleepy, Arousable Pain Control: Adequate, Prn Tx Ordered Nausea/Vomiting Control: Adequate, Prn Tx Ordered Complications Possibly Related to Anesthesia: None Noted
[2017-09-17] MEDS ORDERED: PROPOFOL 200 MG/20 ML VIAL ONE (13:22)
--- NOTE | 2017-09-17 13:33 | PDHPUP ---
History & Physical Update H&P update statement: This history and physical update is based on an assessment of the patient which was completed after admission or registration (within 24 hours), but prior to the surgery/procedure. H&P update: H&P reviewed & patient examined, no change in patient's condition since H&P completed
--- NOTE | 2017-09-17 13:41 | PDCARD ---
Cardioversion Procedure Procedure: electrical cardioversion Indications: atrial fibrillation Consent: signed and in chart Procedural Details: Pads were placed in anterior-posterior position. Synchronized cardioversion attempt #1: 100J Results: normal sinus rhythm Conclusion Comment: The patient cardoverted to NSR however lapsed immediately back to AFIB. Patient Problems: Problems Problem Status Onset DVT (deep venous thrombosis) Acute Lumbar stenosis with neurogenic claudication Acute PAF (paroxysmal atrial fibrillation) Acute
[2017-09-17 15:05] VITALS: BP 126/87
== END 2017-09-17 15:56 | disposition home or self-care (01) ==
LOC: FCATH 11:56
PROVIDERS: ATTEND Internal Medicine Cardiovascular Disease
PROC: 5A2204Z Restoration of Cardiac Rhythm, Single (ICD-10-PCS; principal; 2017-09-17)
DX: I48.1 Persistent atrial fibrillation (principal); I25.10 Atherosclerotic heart disease of native coronary artery without angina pectoris; E78.5 Hyperlipidemia, unspecified; I38 Endocarditis, valve unspecified; I89.0 Lymphedema, not elsewhere classified
CPT/HCPCS: J2704

== ENCOUNTER → 2017-10-07 | Outpatient (CLI) | payer OTHER | LOC: BHLMT 13:30 | PROVIDERS: ATTEND Internal Medicine Cardiovascular Disease | DX: I48.2 Chronic atrial fibrillation (principal); I38 Endocarditis, valve unspecified; R60.9 Edema, unspecified; Z79.899 Other long term (current) drug therapy | CPT/HCPCS: 93005-PO ==